=== PATIENT | female | born 1990 ===

== ENCOUNTER 2018-06-12 10:51 | Outpatient (CLI) | payer SELFPAY | END 2018-06-12 10:52 | disposition home or self-care (01) | LOC: C.LAB 10:51 | DX: Z34.00 Encounter for supervision of normal first pregnancy, unspecified trimester (principal) ==

== ENCOUNTER 2018-06-27 10:04 | Outpatient (CLI) | payer SELFPAY | END 2018-06-27 10:05 | disposition home or self-care (01) | LOC: C.LAB 10:04 | DX: Z34.00 Encounter for supervision of normal first pregnancy, unspecified trimester (principal) ==

== ENCOUNTER 2018-09-02 09:47 | Outpatient (CLI) | payer SELFPAY | END 2018-09-02 09:48 | disposition home or self-care (01) | LOC: C.LAB 09:47 | DX: Z34.00 Encounter for supervision of normal first pregnancy, unspecified trimester (principal) ==